=== PATIENT | female | born 1985 | race African-American/Black ===

== ENCOUNTER 2020-08-01 10:03 | Day surgery (SDC) | payer BC, SELFPAY ==
[~2020-08-01] VITALS: Ht 152.4 cm; Wt 81.6 kg
[2020-08-01 10:55] LABS: HCG,QUAL RESULT NEGATIVE (NEGATIVE)
[2020-08-01] MEDS ORDERED: ROPIVACAINE 40 MG/20 ML AMP EP ONE (12:10)
[2020-08-01] MEDS ORDERED: NS 1000 ML IV.SOLN IV ONE (12:10)
[2020-08-01] MEDS ORDERED: fentaNYL CITRATE/PF 100 MCG/2 ML AMP IVP ONE (12:10)
[2020-08-01] MEDS ORDERED: ONDANSETRON HCL 4 MG/2 ML VIAL IVP ONE (12:10)
[2020-08-01] MEDS ORDERED: LABETALOL 100 MG/ 20ML VIAL IVP ONE (12:10)
[2020-08-01] MEDS ORDERED: ROCURONIUM BROMIDE 10 MG/ML (ZEMURON) IV ONE (12:10)
[2020-08-01] MEDS ORDERED: PROPOFOL 200MG/ 20ML VIAL (DIPRIVAN) IV ONE (12:10)
[2020-08-01] MEDS ORDERED: KETOROLAC TROMETHAMINE 30 MG VIAL IVP ONE (12:10)
[2020-08-01] MEDS ORDERED: LR 1,000 ML IV.SOLN IV ONE (12:10)
[2020-08-01] MEDS ORDERED: SUCCINYLCHOLINE CHLORIDE 20 MG/ML(QUELICIN) IVP ONE (12:10)
[2020-08-01] MEDS ORDERED: WATER FOR IRRIGATION,STERILE 1,000 ML IRRIG.SOLN IR ONE (12:10)
[2020-08-01] MEDS ORDERED: BUPIVACAINE /EPINEPHRINE/PF 0.5% 30 ML VIAL INJ ONE (12:10)
[2020-08-01] MEDS ORDERED: NS IRRIG SOLN 1000 ML IR ONE (12:10)
[2020-08-01] MEDS ORDERED: METOCLOPRAMIDE HCL 10 MG/2 ML VIAL IVP ONE (12:10)
[2020-08-01] MEDS ORDERED: HYDROmorphone 2 MG/ML VIAL IVP ONE (12:10)
[2020-08-01] MEDS ORDERED: DESFLURANE 15 MIN GAS INH ONE (12:10)
[2020-08-01] MEDS ORDERED: DEXAMETHASONE SOD PHOSPHATE 4 MG/ML VIAL IVP ONE (12:10)
[2020-08-01] MEDS ORDERED: SUGAMMADEX SODIUM 200 MG/2 ML VIAL IV ONE (12:10)
[2020-08-01] MEDS ORDERED: ONDANSETRON HCL 4 MG/2 ML VIAL IVP PRN ×2 (14:30→16:00)
[2020-08-01] MEDS ORDERED: HYDROmorphone 1 MG/ML INJ. CARTRIDGE IVP PRN ×2 (14:30)
[2020-08-01] MEDS ORDERED: OXYCODONE/ACETAMINOPHEN 5-325 TABLET PO PRN (16:00)
[2020-08-01] MEDS ORDERED: HYDROcodone/ACETAMIN 5-325 MG TAB (NORCO/ VICODIN) PO PRN (16:00)
[2020-08-01 16:25] VITALS: BP_SYST 134
[2020-08-01] MEDS: SIMETHICONE 80 MG TAB.CHEW PO SCH (18:32)
[2020-08-02] MEDS: SIMETHICONE 80 MG TAB.CHEW PO SCH ×2 (03:30→12:30)
[2020-08-02] MEDS: OXYCODONE/ACETAMINOPHEN 5-325 TABLET PO PRN ×2 (03:52→13:46)
== END 2020-08-02 20:41 | disposition home or self-care (01) ==
LOC: SDS 10:03 → SPU 17:35 → SDS 08-02 20:41
PROVIDERS: ATTEND Specialist
DX: D25.0 Submucous leiomyoma of uterus (principal); N92.0 Excessive and frequent menstruation with regular cycle; D50.0 Iron deficiency anemia secondary to blood loss (chronic); N85.2 Hypertrophy of uterus; R10.2 Pelvic and perineal pain; Z79.899 Other long term (current) drug therapy
CPT/HCPCS: 36415; 57000; 58545; 64488; 84703; 87426; 88305; C1727; C9399; J0330; J1100; J1170; J1885; J2405; J2704; J2765; J2795; J3010; J3490 ×2; J7030; J7120; S2900; E0190